=== PATIENT | female | born 1975 | race Caucasian/White ===

== ENCOUNTER → 2016-12-18 | Outpatient (CLI) | payer SELFPAY ==
[~2016-12-18] MED LIST: CELECOXIB200 MG PO; FLEXERIL10 MG PO; MELATONIN10 M1 PO; PRILOSEC PO; VITAMIN D-32000 UNI1 PO
== END | disposition home or self-care (01) ==
LOC: CBAR 12:49
DX: Z01.818 Encounter for other preprocedural examination (principal); E66.01 Morbid (severe) obesity due to excess calories
CPT/HCPCS: G0463

== ENCOUNTER → 2017-01-29 | Outpatient (CLI) | payer SELFPAY | END | disposition home or self-care (01) | LOC: CBAR 15:46 | DX: Z01.818 Encounter for other preprocedural examination (principal); E66.01 Morbid (severe) obesity due to excess calories | CPT/HCPCS: G0463 ==

== ENCOUNTER → 2017-03-01 | Outpatient (CLI) | payer BC ==
--- NOTE | ~2017-03-01 | EKG ---
PATIENT: MARIA A CASAREZ UNIT #: [id number] Ventricular Rate: 76 BPM Atrial Rate: 76 BPM P-R Interval: 144 ms QRS Duration: 98 ms Q-T Interval: 390 ms QTC Calculation(Bezet): 438 ms P [place]: 21 degrees Calculated R [place]: 79 degrees Calculated T [place]: 37 degrees Diagnosis Line: Normal sinus rhythm Diagnosis Line: Normal ECG Diagnosis Line: No previous ECGs available Diagnosis Line: Confirmed by HYACINTH SAEED MD ([id number]) on Diagnosis Line: 03/02/2017 4:24:39 PM INTERPRETING MD: CHRISTOPHE FINK
--- NOTE | ~2017-03-01 | CR97 ---
[facility] A Service of [facility] RADIOLOGY TEXT RESULTS PATIENT: MARIA A CASAREZ LOCATION: [facility] : 77 UNIT #: [id number] AGE: [address]: Joe Santos MD SEX: F ORDER DR: [id number] [facility] [address] [place], [place] [address] [id number] O MR#: [id number] Acc #: [id number] NAME: MARIA A CASAREZ. : 1975 SEX: F STUDY DATE/TIME: 03/01/2017 8:04 UNIT: [facility] ROOM: STUDY DESCRIPTION: CR Esophagram Attending Physician: Joe Santos M.D. Referring Physician: Joe Santos M.D. Ordering Physician: Joe Santos M.D. Primary Care Physician: Diandra Ellison M.D. MEDICAL IMAGING REPORT This report is preliminary unless electronic signature is present EXAM Single contrast barium esophagram INDICATION Preoperative examination for laparoscopic gastric banding. Patient reports shortness of breath symptoms started today. TECHNIQUE Patient was administered thin barium and multiple fluoroscopic images were obtained. 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 Patient's thoracic esophagus is of normal caliber. There is no evidence of stricture or mass lesion. No hiatal hernia was seen. Total of 10 fluoroscopic images were obtained. Fluoroscopy time 0.4 minutes. IMPRESSION Normal single contrast barium esophagram. Dictated by... Nataly Morgan M.D. THIS IS AN ELECTRONICALLY VERIFIED REPORT Nataly Morgan M.D. at 03/04/2017 4:48 PM AFF/aa TD: 03/04/2017 08:17 JOB #: [id number] [facility] A Service [facility] RADIOLOGY TEXT RESULTS PATIENT: MARIA A CASAREZ LOCATION: [facility] : 77 UNIT #: [id number] AGE: [address]: Joe Santos MD SEX: F ORDER DR: MEDICAL IMAGING REPORT Page 1 of 1 COPY
--- NOTE | ~2017-03-01 | CR63 ---
[facility] A Service of [facility] RADIOLOGY TEXT RESULTS PATIENT: MARIA A CASAREZ LOCATION: [facility] : [birth year] UNIT #: [id number] AGE: [address]: Joe Santos MD SEX: F ORDER DR: [id number] [facility] [address] [place], [place] [address] [id number] O MR#: [id number] Acc #: [id number] NAME: MARIA A CASAREZ : 1975 SEX: F STUDY DATE/TIME: 03/01/2017 7:30 UNIT: [facility] ROOM: STUDY DESCRIPTION: CR Chest 2 View Attending Physician: Joe Santos M.D. Referring Physician: Joe Santos M.D. Ordering Physician: Joe Santos M.D. Primary Care Physician: Diandra Ellison M.D. MEDICAL IMAGING REPORT This report is preliminary unless electronic signature is present EXAM PA and lateral chest 03/01/2017 HISTORY Preop evaluation for gastric band placement. Shortness of breath today. COMPARISON CT chest without contrast 04/21/2013, PA and lateral chest radiograph 04/06/2013. FINDINGS Heart size is upper limits normal but stable. Pulmonary vascular distribution is normal. No pleural effusion or pneumothorax is seen. Degenerative endplate changes are present in the thoracic spine. IMPRESSION Stable borderline cardiac enlargement. No acute chest findings. Dictated by... Hazel Hatfield M.D. THIS IS AN ELECTRONICALLY VERIFIED REPORT Hazel Hatfield M.D. at 03/04/2017 8:31 AM ANGEL/don TD: 03/01/2017 09:06 JOB #: [id number] MEDICAL IMAGING REPORT Page 1 of 1 COPY
[2017-03-01 09:30] LABS: HEMATOCRIT 36.9 % (35.0-45.0); HEMOGLOBIN 11.9 gm/dL (12.0-16.0); MEAN CELL VOLUME 87.2 FL (83-96); MEAN CORPUSCULAR HGB CONC 32.2 g/dL (30-36); MEAN PLATELET VOLUME 8.2 FL (6.5-11.5); RED BLOOD COUNT 4.23 X10e (3.90-5.30); WHITE BLOOD COUNT 6.5 X10e3 (4.0-10.5)
[2017-03-01 10:24] LABS: ALBUMIN SERUM 3.9 g/dL (3.5-5.0); BILIRUBIN,TOTAL 0.5 mg/dL (0.2-2.0); BUN/CREATININE RATIO 37.5; CALCIUM SERUM 8.8 mg/dL (8.4-10.2); CREATININE SERUM 0.4 mg/dL (0.6-1.4); GLOM FILT RATE Estimated 130.3 mL/min (>60); POTASSIUM 4.1 mmol/L (3.5-5.1); PROTEIN TOTAL SERUM 6.8 g/dL (6.0-8.3)
== END | disposition home or self-care (01) ==
LOC: CRAD 07:10 → CAMB 08:30
PROVIDERS: Surgery
DX: Z01.818 Encounter for other preprocedural examination (principal); I51.7 Cardiomegaly
CPT/HCPCS: 36415; 71020; 74220; 80053; 80061; 84443; 85027; 93005

== ENCOUNTER → 2017-03-13 | Day surgery (SDC) | payer BC ==
--- NOTE | ~2017-03-13 | OR ---
Unit #: [id number] #: [id number] Patient: MARIA A CASAREZ [id number] [address] [place], [place] [address] [id number] O MR#: [id number] NAME: MARIA A CASAREZ ROOM: Date of Procedure: 03/13/2017 Admission Date: 03/13/2017 Surgeon: Joe Santos M.D. : 1975 Attending Physician: Joe Santos M.D. Primary Care Physician: Diandra Ellison M.D. OPERATIVE REPORT PREOPERATIVE DIAGNOSIS Chronic morbid obesity with body mass index of 48. POSTOPERATIVE DIAGNOSES 1. Chronic morbid obesity with body mass index of 48. 2. Paraesophageal hiatal hernia. PROCEDURES PERFORMED 1. Laparoscopic adjustable gastric band. 2. Laparoscopic paraesophageal hiatal hernia repair. 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 ANESTHESIA General endotracheal anesthesia. ESTIMATED BLOOD LOSS Minimal. IV FLUIDS 800 crystalloid. COMPLICATIONS None. INDICATIONS FOR PROCEDURE The patient is a 41-year-old with chronic morbid obesity. DESCRIPTION OF PROCEDURE The patient was taken to the operating room and placed in supine position. General anesthesia was induced. The abdomen was prepped and draped. A 3-cm incision was then made left of the midline. A 10-mm Visiport was then placed intraabdominal under direct vision. The abdomen was insufflated to 15 mmHg with CO2. The patient was then placed in a steep reversed Trendelenburg. General inspection of the abdomen revealed what appeared to be a paraesophageal hernia. This was identified with a defect at the diaphragm using anterior palpation with the instrument. We then made a small incision in the subxiphoid region. A Kath liver retractor was then placed intraabdominal and used to retract the left lobe of the liver upward to further expose the paraesophageal hernia and GE junction. I then placed a 5-mm port in the right upper quadrant, a 10-mm Unit #: [id number] #: [id number] Patient: MARIA A CASAREZ port in the left upper quadrant, and another 5-mm port in the left lower quadrant. The stomach was retracted medial and downward. Upon retracting the stomach, we took down the paraesophageal ligament, exposing the right and left alma at the paraesophageal hernia. Any hernia sac was reduced. We then repaired the paraesophageal hernia using interrupted #0 Ethibond sutures in a [id number] type fashion. This formed a snug repair to the anterior esophagus. We then retracted the stomach medially and further exposed the angle of His using Bovie electrocautery. The stomach was then retracted laterally. We then took down the hepatogastric ligament with Bovie electrocautery. This exposed the right alma. Using blunt dissection, I created a retrogastric tunnel from this point to the angle of His. The band was then placed intraabdominal through the 10-mm port site. This was then brought through the retrogastric tunnel in a pars flaccida technique. The band was then closed anteriorly to form a 20-mL to 25-mL anterior gastric pouch. The fundus was then secured to the anterior pouch to prevent movement around the stomach using two interrupted #0 Ethibond sutures. A third suture was then used as a gathering stitch from the lesser curve to the anterior stomach, gathering and imbricating the remaining fundus of the stomach. The tubing was then brought out through the midline 10-mm port site. All ports and the Kath liver retractor were removed under direct vision with no evidence of abdominal hemorrhage. A polypropylene mesh was then secured to the posterior face of the laparoscopic band port. This was secured using #0 Ethibond suture. This was then cut to shape. The port was then connected to the tubing and placed into a subcutaneous pocket just anterior to the rectus sheath. Its position was then confirmed. All tubing was then placed intraabdominal. The wounds were then closed with interrupted 4-0 Vicryl. The patient tolerated the procedure well and was sent to the recovery room in good condition. Dictated by... Luis Toussaint/comfort TD: 03/13/2017 17:56 JOB #: [id number] OPERATIVE REPORT Page 1 of 1 X Joe Santos MD X PROCEDURE OPERATIVE NOTE
--- NOTE | ~2017-03-13 | CR7 ---
[facility] A Service of [facility] RADIOLOGY TEXT RESULTS PATIENT: MARIA A CASAREZ LOCATION: [facility] : [birth year] UNIT #: [id number] AGE: [address]: Joe Santos MD SEX: F ORDER DR: [id number] [facility] [address] [place], [place] [address] [id number] O MR#: [id number] Acc #: [id number] NAME: MARIA A CASAREZ : 1975 SEX: F STUDY DATE/TIME: 03/13/2017 12:02 UNIT: [facility] ROOM: STUDY DESCRIPTION: CR Abdomen Single AP View Attending Physician: Joe Santos M.D. Ordering Physician: Joe Santos M.D. Primary Care Physician: Diandra Ellison M.D. MEDICAL IMAGING REPORT This report is preliminary unless electronic signature is present EXAM AP of the abdomen 03/13/2017 INDICATIONS Postop Lap-Band placement. COMPARISON No comparisons. FINDINGS There is a Lap-Band in place. The phi angle is 65 degrees. There has been a previous cholecystectomy. IMPRESSION Lap-Band placement as described. Dictated by... Louis Yepez M.D. THIS IS AN ELECTRONICALLY VERIFIED REPORT Louis Yepez M.D. at 03/14/2017 7:14 AM Will TD: 03/13/2017 16:09 JOB #: [id number] MEDICAL IMAGING REPORT Page 1 of 1 COPY
== END | disposition home or self-care (01) ==
LOC: CSUR 06:49
DX: E66.01 Morbid (severe) obesity due to excess calories (principal); K44.9 Diaphragmatic hernia without obstruction or gangrene; K21.9 Gastro-esophageal reflux disease without esophagitis; I10 Essential (primary) hypertension; M16.0 Bilateral primary osteoarthritis of hip; G47.30 Sleep apnea, unspecified; Z68.42 Body mass index [BMI] 45.0-49.9, adult; Z72.4 Inappropriate diet and eating habits; Z87.891 Personal history of nicotine dependence; Z88.6 Allergy status to analgesic agent; Z91.040 Latex allergy status; Z79.1 Long term (current) use of non-steroidal anti-inflammatories (NSAID); Z79.899 Other long term (current) drug therapy; Z90.49 Acquired absence of other specified parts of digestive tract; Z98.51 Tubal ligation status; Z98.890 Other specified postprocedural states
CPT/HCPCS: 74000; 84703; C1781; J0330; J0690; J1650; J1885; J2250; J2405; J2710; J3010; L8699